=== PATIENT | female | born 1930 | race Caucasian/White ===

== ENCOUNTER → 2018-01-25 | Outpatient (CLI) | payer MEDICARE, MEDICAID ==
[~2018-01-25] MED LIST: ACET-1862 PO; ACET-2031 PO; AMLO-104 PO; AMLO-111 PO; AMOX-559 PO; ASCO-191 PO; ASPI-757 PO; ASPI-870; ASPI81TA94 PO; BENZ100C26 PO; CHOL400T31 PO; CYA1000 PO; HCTZ25 PO; HYDR-2966 PO; IBU200 PO; LACT1CAP64 PO; LIS20 PO; LOVAZA1PT PO; MULT-27 PO; MULT-947 PO; PNEU0.5D3 IM; POTA20PA10 PO; POTA20TA85 PO; PROP40TA45 PO; PROP80TA25 PO; RABE20TA33 PO; SIMV-42 PO; SIMV10TA98 PO; TRAZ150T8 PO; TRAZ50 PO; VIT1CAPS32 PO; WARF6TAB PO; [UNRECOGNIZED DRUG - CODE] MC; [UNRECOGNIZED DRUG - CODE] PO; [UNRECOGNIZED DRUG - CODE] PO
== END ==
LOC: LAB 14:26
PROVIDERS: ATTEND Internal Medicine
DX: M15.9 Polyosteoarthritis, unspecified (principal); I10 Essential (primary) hypertension
CPT/HCPCS: 36415; 82310; 82374; 82435; 82565; 82947; 84132; 84295; 84520

== ENCOUNTER 2018-04-06 11:23 | Emergency (ER) | payer MEDICARE, MEDICAID ==
[~2018-04-06 11:23] MED LIST changes: -DOXY-179 PO
--- NOTE | 2018-04-06 11:31 | ER Report ---
History and Physical Time Seen By MD: 11:25 HPI/ROS CHIEF COMPLAINT: Blisters to the foot HISTORY OF PRESENT ILLNESS: This is an 79-year-old female presents to the emergency department for a hematoma to the plantar surface of her left foot. Patient states that she had a callus that was shaved down March 12. No complications or problems during this period yesterday she began to have some increased pain to her left foot, on the plantar surface. Ambulation last night became increasingly more painful, then this morning the pain was too uncomfortable, she also noted that she had a large hematoma to the bottom of her foot. She had home health, and take a look at the foot they thought that going to the ER to have the "hematoma drained". The patient is not diabetic. She does not take blood thinners other than an 81 mg daily aspirin, she does take Aleve on a regular basis. The area surrounding the right great toe is red, with a hematoma to the ball of the foot at the base of the left great toe. The patient denies fevers or chills. No nausea or vomiting. No other concerns at this time. REVIEW OF SYSTEMS: Respiratory: No cough, no dyspnea. Cardiovascular: No chest pain, no palpitations. Gastrointestinal: No vomiting, no abdominal pain. Musculoskeletal: As above. Integumentary: As above. Allergies: Coded Allergies: Sulfa (Sulfonamide Antibiotics) (Verified Allergy, Intermediate, RASH, 02/10/16) azithromycin (Verified Allergy, Unknown, 04/06/18) diazepam (Verified Adverse Reaction, Severe, MENTAL STATUS CHANGES, 02/10/16) lisinopril (Verified Adverse Reaction, Mild, DRY COUGH, 02/10/16) warfarin (Verified Adverse Reaction, Unknown, DIARRHEA, 04/06/18) Uncoded Allergies: DIPHENISTRAP (Allergy, Unknown, 04/06/18) Home Meds Active Scripts Doxycycline Hyclate (DOXYCYCLINE HYCLATE) 100 Mg Tablet, 100 MG PO BID for 10 Days, #20 TAB 0 Refills Prov:BIENVENIDO [employer]ARK [employer] JOGGER-BC 04/06/18 Hydrochlorothiazide (HYDROCHLOROTHIAZIDE) 25 Mg Tablet, 1 TAB PO QDAY, #90 TAB 1 Refill Prov:YOAN JAFFE MD 11/06/17 Propranolol Hcl (PROPRANOLOL HCL) 40 Mg Tablet, 2 TAB PO QDAY, #180 TAB 3 Refills Prov:YOAN JAFFE MD 11/02/17 Potassium Chloride (KLOR-CON M20) 20 Meq Tab.er.prt, 1 TAB PO QDAY, #90 TAB 4 Refills Prov:YOAN JAFFE MD 06/30/17 Simvastatin (SIMVASTATIN) 10 Mg Tablet, 1 TAB PO HS, #90 TAB 3 Refills Prov:YOAN JAFFE MD 06/27/17 Incontinence Pad,Liner,Disp (POISE PADS) 1 Each Each, EACH MC Q30D, #90 11 Refills Use three pads daily. Prov:YOAN JAFFE MD 05/02/17 Reported Medications Multivit With Calcium,Iron,Min (WOMEN'S DAILY FORMULA) 1 Each Tablet, 1 TAB PO QDAY 10/13/16 Aspirin (ASPIRIN) 81 Mg Tab.chew, 1 TAB PO QDAY, TAB.CHEW 02/10/16 Discontinued Scripts Amlodipine Besylate (AMLODIPINE BESYLATE) 5 Mg Tablet, 1 TAB PO QDAY, #90 TAB 3 Refills Prov:YOAN JAFFE MD 05/02/17 Past Medical/Surgical History The patient has a past medical and surgical history of cataracts, TIAs, stroke, pacemaker, congestive heart failure, pulmonary embolus, hypercholesterolemia, complete heart block, hypertension, pneumonia, upper GI bleed, GERD, irritable bowel syndrome, hiatal hernia, appendectomy, cholecystectomy, endoscopy, breast cancer, hysterectomy, , spinal stenosis, osteoarthritis, chronic back pain, hyperthyroidism, radiation for thyroid, depression, anxiety, shingles, takes Coumadin, biopsy of breast. Hx Smoking: No Smoking Status: Never Smoker Exposure to Second Hand Smoke?: Yes Constitutional Vital Sign - Last 24 Hours 04/06/18 04/06/18 04/06/18 04/06/18 11:23 11:24 11:24 11:30 Temp 98.0 Pulse ??? 66 Resp 16 B/P (MAP) 173/99 173/99 (123) 177/83 (114) Pulse Ox 93 O2 Delivery Room Air 04/06/18 04/06/18 04/06/18 04/06/18 11:38 11:53 12:00 12:08 Pulse 60 60 67 B/P (MAP) 160/84 (109) Pulse Ox 89 88 90 04/06/18 04/06/18 04/06/18 04/06/18 12:23 12:30 12:38 12:53 Pulse 62 61 61 B/P (MAP) 163/80 (107) Pulse Ox 86 88 95 04/06/18 04/06/18 04/06/18 04/06/18 12:58 13:00 13:13 13:43 Pulse 61 62 60 B/P (MAP) 164/82 (109) Pulse Ox 92 89 92 04/06/18 13:58 Pulse 60 Pulse Ox 87 Physical Exam General Appearance: The patient is alert, has no immediate need for airway protection and no current signs of toxicity. Eyes: Pupils equal and round no injection. Respiratory: Chest is non tender, lungs are clear to auscultation. Cardiac: regular rate and rhythm. Gastrointestinal: Abdomen is soft and non tender, no masses, bowel sounds normal. Musculoskeletal: Neck: Neck is supple and non tender. Extremities have full range of motion and are non tender. Skin: Erythema, early onset of cellulitis and hematoma to the plantar surface of the left foot around the base of the great toe. DIFFERENTIAL DIAGNOSIS: After history and physical exam differential diagnosis was considered for cellulitis, hematoma, septic arthritis, osteomyelitis. Medical Decision Making [place]/Imaging [place] [facility] [place] Genie Del Rosario : 1930 Visit/Account:[id number] Date of Sevice: 04/06/2018 EXAMINATION: Left foot radiographs 3 views HISTORY: Evaluate for osteomyelitis. Blood blister on bottom of foot at 1st MTP. COMPARISON: None. FINDINGS: AP, lateral and oblique views of the left foot are obtained. Bones: Bony structures are diffusely osteopenic. There is no bony erosion or periosteal reaction. Joint spaces: Moderate joint space narrowing of the 1st MTP joint. Hardware: None. Alignment: Hallux valgus. Probable hammertoe deformities, although these images are not weightbearing. There is lateral dislocation at the 2nd MTP joint. Soft tissues: Negative. IMPRESSION: 1. No radiographic evidence of osteomyelitis of the left foot. 2. 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 3. 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 Report Dictated By: Dianne Katz MD at 04/06/2018 12:09 PM Report E-Signed By: Dianne Katz MD at 04/06/2018 12:13 PM WSN:[id number] ED Course/Re-evaluation ED Course The patient was admitted to room. A history of physical were obtained. Differential diagnoses were considered. 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 I did review the x-ray results with the patient. I did tell her not feel that aspirating the fluid out of the hematoma is appropriate at this time, I be concerned about introducing more bacteria into the already mildly erythematous and mildly cellulitic foot. Patient expressed understanding. We did make contact with the patient's home health staff, I did write an order for home health visits daily for the next week to reevaluate the foot, we did place a loosely wrapped Mikey wrap around the foot right some discomfort and redistribute some of the hematoma. The patient was started on doxycycline. Patient was discharged home. Her questions or concerns at this time, patient was in agreement with his care. She was also encouraged to return to the ER for any other concerns or if the symptoms become increasingly more problematic. 04/06/2018 12:40:00 pm social worker psychiatric will come and speak with the patient, I would like for home health to monitor her left foot for the next week to confirm that the infection is improving and that the hematoma is improving as well. Decision to Disposition Date: Apr 06, 2018 Decision to Disposition Time: 13:11 Depart Departure Latest Vital Signs Vital Signs Date Time Temp Pulse Resp B/P (MAP) Pulse Ox O2 Delivery O2 Flow Rate FiO2 04/06/18 13:58 60 87 04/06/18 13:00 164/82 (109) 04/06/18 11:24 98.0 16 Room Air Impression: Primary Impression: Cellulitis of left foot Additional Impression: Hematoma Condition: Improved Disposition: HOME OR SELF-CARE Referrals: YOAN JAFFE MD (PCP) New Scripts Doxycycline Hyclate (DOXYCYCLINE HYCLATE) 100 Mg Tablet 100 MG PO BID for 10 Days, #20 TAB 0 Refills Prov: [employer] JOGGER-BC 04/06/18 Patient Instructions: Cellulitis (ED), Hematoma (ED) Additional Instructions: Please have home health evaluate the foot daily and rewrap the foot with the mikey wrap, but not too tight. Take the Doxycycline as directed. If the home health staff are concerned about worsening infection, return to the ED or follow up with Dr. Helm. Get plenty of rest. Drink plenty of water. Return to the ED for any other concerns or worsening symptoms. Problem Qualifiers [employer] JOGGER-BC Apr 06, 2018 11:31
--- NOTE | 2018-04-06 12:19 | RADIOLOGY IMAGING REPORT ---
FACILITY: [facility] - [place] PATIENT NAME: Genie Del Rosario : 1930 MR: [id number] V: [id number] EXAM DATE: ORDERING PHYSICIAN: BIENVENIDO PARK TECHNOLOGIST: [place] [facility] [place] Genie Del Rosario : 1930 Visit/Account:[id number] Date of Sevice: 04/06/2018 EXAMINATION: Left foot radiographs 3 views HISTORY: Evaluate for osteomyelitis. Blood blister on bottom of foot at 1st MTP. COMPARISON: None. FINDINGS: AP, lateral and oblique views of the left foot are obtained. Bones: Bony structures are diffusely osteopenic. There is no bony erosion or periosteal reaction. Joint spaces: Moderate joint space narrowing of the 1st MTP joint. Hardware: None. Alignment: Hallux valgus. Probable hammertoe deformities, although these images are not weightbearin g. There is lateral dislocation at the 2nd MTP joint. Soft tissues: Negative. IMPRESSION: 1. No radiographic evidence of osteomyelitis of the left foot. 2. 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 3. 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 Report Dictated By: Dianne Katz MD at 04/06/2018 12:09 PM Report E-Signed By: Dianne Katz MD at 04/06/2018 12:13 PM WSN:[id number]
[2018-04-06 13:00] VITALS: BP 164/82
[2018-04-06] MEDS ORDERED: DOXY-179 PO (13:00)
== END 2018-04-06 14:05 | disposition home or self-care (01) ==
LOC: ER 11:44
DX: L03.116 Cellulitis of left lower limb (principal); S90.32XA Contusion of left foot, initial encounter
CPT/HCPCS: 99283

== ENCOUNTER → 2018-04-06 | Outpatient (CLI) | payer MEDICARE, MEDICAID ==
[~2018-04-06] MED LIST changes: -AMLO-111 PO; +AMLO-125 PO; +DOXY-179 PO
== END ==
LOC: AMB 11:00
PROVIDERS: ATTEND Nurse Practitioner
DX: S90.32XA Contusion of left foot, initial encounter (principal)
CPT/HCPCS: A0425; A0429

== ENCOUNTER → 2018-04-06 | Outpatient (CLI) | payer MEDICARE, MEDICAID | LOC: AMB 13:56 | PROVIDERS: ATTEND Nurse Practitioner | DX: M79.671 Pain in right foot (principal) | CPT/HCPCS: A0425; A0428 ==

== ENCOUNTER → 2018-04-25 | Outpatient (CLI) | payer MEDICARE, MEDICAID ==
[~2018-04-25] MED LIST changes: +DOXY-179 PO
[2018-04-25 11:38] LABS: LDL CHOLESTEROL 58 mg/dl
== END ==
LOC: LAB 11:07
PROVIDERS: ATTEND Internal Medicine
DX: E05.90 Thyrotoxicosis, unspecified without thyrotoxic crisis or storm (principal); E78.2 Mixed hyperlipidemia; I10 Essential (primary) hypertension
CPT/HCPCS: 36415; 82040; 82247; 82310; 82374; 82435; 82465; 82565; 82947; 83718; 84075; 84132; 84155; 84295; 84443; 84450; 84460; 84478; 84520

== ENCOUNTER 2018-08-02 09:30 | Emergency (ER) | payer MEDICARE, MEDICAID ==
[~2018-08-02 09:30] MED LIST changes: -LIDO700A19 TD
--- NOTE | 2018-08-02 09:36 | ER Report ---
History and Physical Time Seen By MD: 09:36 HPI/ROS CHIEF COMPLAINT: Fall on Monday HISTORY OF PRESENT ILLNESS: Patient is a 87-year-old female here with complaints of right lower rib pain status post fall onto a stool several days ago with ac utely worsening pain today. Patient reports having difficulty taking deep breaths due to right-sided chest pains. Patient is afebrile, hemodynamically stable at time of evaluation. Patient does live alone and reports that she is concerned that she may have fractured her ribs. Patient is hemodynamically stable at time of evaluation. Patient also complains of right knee pain. REVIEW OF SYSTEMS: Constitutional: No fever, no chills. Eyes: No discharge. ENT: No sore throat. Cardiovascular: + right sided lower chest pain, no palpitations. Respiratory: No cough, + shortness of breath. Gastrointestinal: No abdominal pain, no vomiting. Genitourinary: No hematuria. Musculoskeletal: No back pain. Skin: No rashes. Neurological: No headache. Allergies: Coded Allergies: Sulfa (Sulfonamide Antibiotics) (Verified Allergy, Intermediate, RASH, 08/02/18) azithromycin (Verified Allergy, Unknown, 08/02/18) diazepam (Verified Adverse Reaction, Severe, MENTAL STATUS CHANGES, 08/02/18) lisinopril (Verified Adverse Reaction, Mild, DRY COUGH, 08/02/18) warfarin (Verified Adverse Reaction, Unknown, DIARRHEA, 08/02/18) Uncoded Allergies: DIPHENISTRAP (Allergy, Unknown, 04/06/18) Home Meds Active Scripts Lidocaine (Lidocaine) 5 % Adh..patch, 1 PATCH TD Q12H PRN for PAIN, #20 PATCH Prov:CONCHITA LEOS DO 08/02/18 Propranolol Hcl (PROPRANOLOL HCL) 40 Mg Tablet, 2 TAB PO QDAY, #180 TAB 1 Refill Prov:YOAN JAFFE MD 05/16/18 Hydrochlorothiazide (HYDROCHLOROTHIAZIDE) 25 Mg Tablet, 1 TAB PO QDAY, #90 TAB 1 Refill Prov:YOAN JAFFE MD 11/06/17 Potassium Chloride (KLOR-CON M20) 20 Meq Tab.er.prt, 1 TAB PO QDAY, #90 TAB 4 Refills Prov:YOAN JAFFE MD 06/30/17 Simvastatin (SIMVASTATIN) 10 Mg Tablet, 1 TAB PO HS, #90 TAB 3 Refills Prov:YOAN JAFFE MD 06/27/17 Incontinence Pad,Liner,Disp (POISE PADS) 1 Each Each, EACH MC Q30D, #90 11 Refills Use three pads daily. Prov:YOAN JAFFE MD 05/02/17 Reported Medications Multivit With Calcium,Iron,Min (WOMEN'S DAILY FORMULA) 1 Each Tablet, 1 TAB PO QDAY 10/13/16 Aspirin (ASPIRIN) 81 Mg Tab.chew, 1 TAB PO QDAY, TAB.CHEW 02/10/16 Hx Smoking: No Smoking Status: Never Smoker Exposure to Second Hand Smoke?: Yes Constitutional Vital Sign - Last 24 Hours 08/02/18 08/02/18 08/02/18 08/02/18 09:30 09:32 09:33 09:37 Temp 98.2 Pulse ??? 60 Resp 18 B/P (MAP) 142/130 (134) 166/90 166/90 (115) Pulse Ox 88 O2 Delivery Room Air 08/02/18 08/02/18 08/02/18 08/02/18 10:00 10:30 11:00 11:30 Pulse 64 69 62 67 Resp 21 17 19 17 B/P (MAP) 169/86 (113) 158/82 (107) 170/87 (114) 160/86 (110) Pulse Ox 93 93 08/02/18 12:00 Pulse 62 Resp 20 B/P (MAP) 149/86 (107) Physical Exam General Appearance: The patient is alert, has no immediate need for airway protection and no signs of toxicity. Uncomfortable appearing Eyes: Pupils equal and round no pallor or injection. ENT, Mouth: Mucous membranes are moist. Respiratory: There are no retractions, lungs are clear to auscultation. Cardiovascular: Regular rate and rhythm. + tenderness on palpation of right chest wall lower ribs Gastrointestinal: Abdomen is soft and non tender, no masses, bowel sounds normal. Neurological: No focal neurological deficits Skin: Warm and dry, no rashes. Musculoskeletal: Neck is supple non tender. Extremities are nontender, nonswollen and have full range of motion. DIFFERENTIAL DIAGNOSIS: After history and physical exam differential diagnosis was considered for chest pain including but not limited to myocardial ischemia, pericarditis pulmonary embolus, chest wall pain, pleural inflammation and pulmonary infectious causes. Medical Decision Making Data Points Result Diagram: 08/02/18 0946 08/02/18 0946 Laboratory Hematology Test 08/02/18 09:46 Red Blood Count 5.03 M/uL (4.17-5.56) Mean Corpuscular Volume 94.2 fL (80.0-96.0) Mean Corpuscular Hemoglobin 32.5 pg (26.0-33.0) Mean Corpuscular Hemoglobin Concent 34.5 g/dL (32.0-36.0) Red Cell Distribution Width 14.2 % (11.5-14.5) Mean Platelet Volume 9.3 fL (7.2-11.1) Neutrophils (%) (Auto) 63.7 % (39.4-72.5) Lymphocytes (%) (Auto) 22.2 % (17.6-49.6) Monocytes (%) (Auto) 8.4 % (4.1-12.4) Eosinophils (%) (Auto) 4.7 % (0.4-6.7) Basophils (%) (Auto) 1.0 % (0.3-1.4) Nucleated RBC Relative Count (auto) 0.1 /100WBC Neutrophils # (Auto) 5.2 K/uL (2.0-7.4) Lymphocytes # (Auto) 1.8 K/uL (1.3-3.6) Monocytes # (Auto) 0.7 K/uL (0.3-1.0) Eosinophils # (Auto) 0.4 K/uL (0.0-0.5) Basophils # (Auto) 0.1 K/uL (0.0-0.1) Nucleated RBC Absolute Count (auto) 0.01 K/uL Prothrombin Time 13.9 seconds (12.0-14.4) Prothromb Time International Ratio 1.07 Activated Partial Thromboplast Time 29 seconds (23-35) Sodium Level 140 mmol/L (137-145) Potassium Level 3.7 mmol/L (3.5-5.0) Chloride Level 104 mmol/L (98-107) Carbon Dioxide Level 30 mmol/L (22-31) Blood Urea Nitrogen 15 mg/dl (7-18) Creatinine 0.60 mg/dl (0.52-1.04) Glomerular Filtration Rate Calc > 60.0 Random Glucose 101 mg/dl (75-110) Calcium Level 10.4 mg/dl (8.4-10.2) Total Bilirubin 1.2 mg/dl (0.2-1.3) Aspartate Amino Transf (AST/SGOT) 23 U/L (0-35) Alanine Aminotransferase (ALT/SGPT) 19 U/L (0-56) Alkaline Phosphatase 57 U/L (0-126) Total Protein 6.8 g/dl (6.3-8.2) Albumin 3.8 g/dl (3.5-5.0) Lipase 71 U/L (23-300) Chemistry Test 08/02/18 09:46 White Blood Count 8.2 k/uL (4.5-11.0) Red Blood Count 5.03 M/uL (4.17-5.56) Hemoglobin 16.3 g/dL (12.0-16.0) Hematocrit 47.3 % (34.0-47.0) Mean Corpuscular Volume 94.2 fL (80.0-96.0) Mean Corpuscular Hemoglobin 32.5 pg (26.0-33.0) Mean Corpuscular Hemoglobin Concent 34.5 g/dL (32.0-36.0) Red Cell Distribution Width 14.2 % (11.5-14.5) Platelet Count 151 K/uL (150-450) Mean Platelet Volume 9.3 fL (7.2-11.1) Neutrophils (%) (Auto) 63.7 % (39.4-72.5) Lymphocytes (%) (Auto) 22.2 % (17.6-49.6) Monocytes (%) (Auto) 8.4 % (4.1-12.4) Eosinophils (%) (Auto) 4.7 % (0.4-6.7) Basophils (%) (Auto) 1.0 % (0.3-1.4) Nucleated RBC Relative Count (auto) 0.1 /100WBC Neutrophils # (Auto) 5.2 K/uL (2.0-7.4) Lymphocytes # (Auto) 1.8 K/uL (1.3-3.6) Monocytes # (Auto) 0.7 K/uL (0.3-1.0) Eosinophils # (Auto) 0.4 K/uL (0.0-0.5) Basophils # (Auto) 0.1 K/uL (0.0-0.1) Nucleated RBC Absolute Count (auto) 0.01 K/uL Prothrombin Time 13.9 seconds (12.0-14.4) Prothromb Time International Ratio 1.07 Activated Partial Thromboplast Time 29 seconds (23-35) Glomerular Filtration Rate Calc > 60.0 Calcium Level 10.4 mg/dl (8.4-10.2) Total Bilirubin 1.2 mg/dl (0.2-1.3) Aspartate Amino Transf (AST/SGOT) 23 U/L (0-35) Alanine Aminotransferase (ALT/SGPT) 19 U/L (0-56) Alkaline Phosphatase 57 U/L (0-126) Total Protein 6.8 g/dl (6.3-8.2) Albumin 3.8 g/dl (3.5-5.0) Lipase 71 U/L (23-300) Coagulation Test 08/02/18 09:46 Prothrombin Time 13.9 seconds Prothromb Time International Ratio 1.07 Activated Partial Thromboplast Time 29 seconds EKG/Imaging Imaging PATIENT NAME: Genie Del Rosario : 1930 MR: [id number] V: [id number] EXAM DATE: ORDERING PHYSICIAN: CONCHITA LEOS TECHNOLOGIST: Location: [facility] Patient: Genie Del Rosario : 1930 Visit/Account:[id number] Date of Sevice: 08/02/2018 CT CHEST ABDOMEN PELVIS W/CON HISTORY: fall, right lower rib pain s/p fall tues TECHNIQUE: CT thoracic inlet to the pubic symphysis was obtained with IV c ontrast. One of the following dose optimization techniques was utilized in the performance of this exam: automated exposure control; adjustment of the mA and/or kV according to the patient's size; or use of an iterative reconstruction technique. Specific details can be referenced in the facility's radiology CT exam operational policy. CONTRAST: 75 cc Isovue-370 IV. COMPARISON: None. FINDINGS: CHEST: Lungs/pleura: The lungs are clear. Mediastinum: There is mild cardiomegaly. Internal cardiac defibrillator/pacemaker wires are seen in good position. There is no mediastinal adenopathy. Bones/soft tissues: There are no rib fractures. Right and left clavicle are intact. Both scapulas are intact. ABDOMEN/PELVIS: Liver/gallbladder: Liver demonstrates normal enhancement. The gallbladder is not identified. Spleen: Normal. Adrenals: Normal. Pancreas: Normal enhancement without evidence of mass. Kidneys/: There are several cysts in the left kidney. There is no suspicious right or left renal mass. Pelvis/Bladder: Urinary bladder is normal. GI: There is no focal abnormality in the small bowel or colon. Vessels/nodes: Negative. Bones/soft tissues: There are no lytic or blastic bone lesions. Multilevel degenerative disc disease change and facet arthropathy is seen throughout the lumbar spine. There is no evidence of pelvic fracture. IMPRESSION: 1. Clear lungs. 2. No evidence of solid organ injury in the abdomen or pelvis. 3. No evidence of fracture. PATIENT NAME: Genie Del Rosario : 1930 MR: [id number] V: [id number] EXAM DATE: ORDERING PHYSICIAN: CONCHITA LEOS TECHNOLOGIST: Location: [facility] Patient: Genie Del Rosario : 1930 Visit/Account:[id number] Date of Sevice: 08/02/2018 Study: KNEE 3 VIEW RIGHT Indication: Fall Comparison study: None available Findings: AP lateral and oblique views of the right knee demonstrates mild degenerative disease. There is chondrocalcinosis of the menisci present. There is no significant suprapatellar effusion noted. There is no evidence of lytic or blastic bony lesions. There is no evidence of acute bony abnormality. IMPRESSION: Mild degenerative disease. Chondrocalcinosis of the menisci. There is no evidence of acute bony abnormality. ED Course/Re-evaluation ED Course Patient is an 87-year-old female here status post fall several days ago with complaints of right chest wall pain. Patient reportedly struck her right lower rib cage on a stool at that time and complains now of difficulty taking a deep breath. Labs were unremarkable with a stable H&H. CT chest and pelvis showed no acute intrathoracic or intra-abdominal findings. Lidocaine patch was administered to the point of maximum tenderness. Patient was given a prescription for lidocaine patches. Recommend close PCP follow-up in the next 24-48 hours. Knee x-ray was negative for fracture. Return precautions provided. Patient was hemodynamically stable throughout course. Decision to Disposition Date: August 02, 2018 Decision to Disposition Time: 12:35 Depart Departure Latest Vital Signs Vital Signs Date Time Temp Pulse Resp B/P (MAP) Pulse Ox O2 Delivery O2 Flow Rate FiO2 08/02/18 12:00 62 20 149/86 (107) 08/02/18 10:30 93 08/02/18 09:33 98.2 Room Air Impression: Primary Impression: Contusion of rib on right side Condition: Improved Disposition: HOME OR SELF-CARE Referrals: YOAN JAFFE MD (PCP) New Scripts Lidocaine (Lidocaine) 5 % Adh..patch 1 PATCH TD Q12H PRN for PAIN, #20 PATCH Prov: CONCHITA LEOS DO 08/02/18 Patient Instructions: Contusion in Adults (ED) Additional Instructions: Please drink plenty of water. You may apply 1 patch to the painful right chest area every 12 hours as needed for pain control. Please follow-up in the next 24- 48 hours with your primary care provider. Please return promptly if she develop worsening pain, fevers, cough, nausea, vomiting. CONCHITA LEOS DO August 02, 2018 09:36
[2018-08-02 09:55] LABS: PLATELET COUNT, AUTOMATED 151 K/uL (150-450)
[2018-08-02 10:18] LABS: INR 1.07
[2018-08-02] MEDS ORDERED: IOPAMIDOL 76% 150 ML INFUS BTL 150 ML ONE (10:39)
--- NOTE | 2018-08-02 10:51 | RADIOLOGY IMAGING REPORT ---
FACILITY: [facility] - [place] PATIENT NAME: Genie Del Rosario : 1930 MR: [id number] V: [id number] EXAM DATE: ORDERING PHYSICIAN: CONCHITA LEOS TECHNOLOGIST: [place] [facility] [facility] [place] Genie Del Rosario : 1930 Visit/Account:[id number] Date of Sevice: 08/02/2018 Study: KNEE 3 VIEW RIGHT Indication: Fall Comparison study: None available Findings: AP lateral and oblique views of the right knee demonstrates mild degenerative disease. Ther e is chondrocalcinosis of the menisci present. There is no significant suprapatellar effusion noted. There is no evidence of lytic or blastic bony l esions. There is no evidence of acute bony abnormality. IMPRESSION: Mild degenerative disease. Chondrocalcinosis of the menisci. There is no evidence of acut e bony abnormality. Report Dictated By: Clinton Unger at 08/02/2018 10:44 AM Report E-Signed By: Clinton Unger at 08/02/2018 10:46 AM WSN:[id number]
--- NOTE | 2018-08-02 11:21 | RADIOLOGY IMAGING REPORT ---
FACILITY: [facility] PATIENT NAME: Genie Del Rosario : 1930 MR: [id number] V: [id number] EXAM DATE: ORDERING PHYSICIAN: CONCHITA LEOS TECHNOLOGIST: Location: [facility] - [place] Patient: Genie Del Rosario : 1930 Visit/Account:[id number] Date of Sevice: 08/02/2018 CT CHEST ABDOMEN PELVIS W/CON HISTORY: fall, right lower rib pain s/p fall tues TECHNIQUE: CT thoracic inlet to the pubic symphysis was obtained with IV contrast. One of the following dose optimization techniques was utilized in the performance of this exam: autom ated exposure control; adjustment of the mA and/or kV according to the patient's size; or use of an i terative reconstruction technique. Specific details can be referenced in the facility's radiology CT exam operational policy. CONTRAST: 75 cc Isovue-370 IV. COMPARISON: None. FINDINGS: CHEST: Lungs/pleura: The lungs are clear. Mediastinum: There is mild cardiomegaly. Internal cardiac defibrillator/pacemaker wires are seen in good position. There is no mediastinal adenopathy. Bones/soft tissues: There are no rib fractures. Right and left clavicle are intact. Both scapulas ar e intact. ABDOMEN/PELVIS: Liver/gallbladder: Liver demonstrates normal enhancement. The gallbladder is not identified. Spleen: Normal. Adrenals: Normal. Pancreas: Normal enhancement without evidence of mass. Kidneys/: There are several cysts in the left kidney. There is no suspicious right or left renal m ass. Pelvis/Bladder: Urinary bladder is normal. GI: There is no focal abnormality in the small bowel or colon. Vessels/nodes: Negative. Bones/soft tissues: There are no lytic or blastic bone lesions. Multilevel degenerative disc disease change and facet arthropathy is seen throughout the lumbar spine. There is no evidence of pelvic fra cture. IMPRESSION: 1. Clear lungs. 2. No evidence of solid organ injury in the abdomen or pelvis. 3. No evidence of fracture. Report Dictated By: Leif Lee at 08/02/2018 11:09 AM Report E-Signed By: Leif Lee at 08/02/2018 11:16 AM WSN:[id number]
[2018-08-02] MEDS ORDERED: LIDOCAINE 5% PATCH TP SCH (11:55)
[2018-08-02 12:00] VITALS: BP 149/86
[2018-08-02] MEDS ORDERED: LIDO700A19 TD (12:37)
== END 2018-08-02 13:45 | disposition home or self-care (01) ==
LOC: ER 09:30
DX: S30.1XXA Contusion of abdominal wall, initial encounter (principal)
CPT/HCPCS: 71260; 73562; 74177; 83690; 85025; 85610; 85730; 99284; A9270; Q9967; 82040; 82247; 82310; 82374; 82435; 82565; 82947; 84075; 84132; 84155; 84295; 84450; 84460; 84520

== ENCOUNTER → 2018-08-02 | Outpatient (CLI) | payer MEDICARE, MEDICAID ==
[~2018-08-02] MED LIST changes: +LIDO700A19 TD
== END ==
LOC: AMB 09:07
PROVIDERS: ATTEND Nurse Practitioner
DX: R07.81 Pleurodynia (principal); R10.11 Right upper quadrant pain; W19.XXXA Unspecified fall, initial encounter
CPT/HCPCS: A0425; A0429

== ENCOUNTER → 2018-08-02 | Outpatient (CLI) | payer MEDICARE, MEDICAID | LOC: AMB 13:39 | PROVIDERS: ATTEND Nurse Practitioner | DX: Z76.89 Persons encountering health services in other specified circumstances (principal) | CPT/HCPCS: A0425; A0428 ==

== ENCOUNTER 2018-09-27 13:15 | Emergency (ER) | payer MEDICARE, MEDICAID ==
[~2018-09-27 13:15] MED LIST changes: -LIDO76.5
--- NOTE | 2018-09-27 13:27 | ER Report ---
History and Physical Time Seen By MD: 13:25 Hx. of Stated Complaint: Pt. hasn't had a BM for 5 days. Recent fall on 09/22 and also has right rib pain. Refused transport to hospital after fall on 09/22. For consiptation, pt. has been taking Milk of Mag with liquid stool, but feels like she has big stool that won't pass. HPI/ROS CHIEF COMPLAINT: Constipation HISTORY OF PRESENT ILLNESS: This is an 87-year-old female who presents to emergency department for constipation. Patient states that it's been 5 days since she's had a bowel movement, she states that she can feel stool in her rectum she is unable to reach around and disimpact herself she states she had a recent fall and anytime she turns or bears down increase the pain to her ribs. She denies significant abdominal pain, she states that she is somewhat d istended, she also states that she is having difficulties urinating now. She denies fevers or chills. No chest pain or shortness of breath. No nausea or vomiting. REVIEW OF SYSTEMS: Constitutional: No fever, no chills. Eyes: No discharge. ENT: No sore throat. Cardiovascular: No chest pain, no palpitations. Respiratory: No cough, no shortness of breath. Gastrointestinal: As above. Genitourinary: As above. Musculoskeletal: No back pain. Skin: No rashes. Neurological: No headache. Allergies: Coded Allergies: Sulfa (Sulfonamide Antibiotics) (Verified Allergy, Intermediate, RASH, 09/27/18) azithromycin (Verified Allergy, Unknown, 09/27/18) diazepam (Verified Adverse Reaction, Severe, MENTAL STATUS CHANGES, 09/27/18) lisinopril (Verified Adverse Reaction, Mild, DRY COUGH, 09/27/18) warfarin (Verified Adverse Reaction, Unknown, DIARRHEA, 09/27/18) Uncoded Allergies: DIPHENISTRAP (Allergy, Unknown, 04/06/18) Home Meds Active Scripts Lidocaine (Lidocaine) 5 % Adh..patch, 1 PATCH TD Q12H PRN for PAIN, #20 PATCH Prov:CONCHITA LEOS DO 08/02/18 Propranolol Hcl (PROPRANOLOL HCL) 40 Mg Tablet, 2 TAB PO QDAY, #180 TAB 1 Refill Prov:YOAN JAFFE MD 05/16/18 Hydrochlorothiazide (HYDROCHLOROTHIAZIDE) 25 Mg Tablet, 1 TAB PO QDAY, #90 TAB 1 Refill Prov:YOAN JAFFE MD 11/06/17 Potassium Chloride (KLOR-CON M20) 20 Meq Tab.er.prt, 1 TAB PO QDAY, #90 TAB 4 Refills Prov:YOAN JAFFE MD 06/30/17 Simvastatin (SIMVASTATIN) 10 Mg Tablet, 1 TAB PO HS, #90 TAB 3 Refills Prov:YOAN JAFFE MD 06/27/17 Incontinence Pad,Liner,Disp (POISE PADS) 1 Each Each, EACH MC Q30D, #90 11 Refills Use three pads daily. Prov:YOAN JAFFE MD 05/02/17 Reported Medications Amlodipine Besylate (AMLODIPINE BESYLATE) 5 Mg Tablet, 1 TAB PO QDAY, TAB 08/16/18 Multivit With Calcium,Iron,Min (WOMEN'S DAILY FORMULA) 1 Each Tablet, 1 TAB PO QDAY 10/13/16 Aspirin (ASPIRIN) 81 Mg Tab.chew, 1 TAB PO QDAY, TAB.CHEW 02/10/16 Past Medical/Surgical History The patient has a past medical and surgical history of Parkinson's disease, TIA, pacemaker, complete heart block, hypertension, hypercholesterolemia, pneumonia, pulmonary embolus, upper GI bleed, hiatal hernia, spinal stenosis, macular degeneration, congestive heart failure, benign cyst removal from bilateral breasts, cholecystectomy, hysterectomy, cataract surgery. Reviewed Nurses Notes: Yes Hx Smoking: No Smoking Status: Never Smoker Exposure to Second Hand Smoke?: Yes Constitutional Vital Sign - Last 24 Hours 09/27/18 09/27/18 09/27/18 09/27/18 13:15 13:17 13:30 13:45 Temp 98.3 Pulse 71 66 B/P (MAP) 149/74 149/74 (99) 114/94 (101) Pulse Ox 84 94 O2 Delivery Room Air 09/27/18 14:30 B/P (MAP) 112/64 (80) Physical Exam General Appearance: The patient is alert, has no immediate need for airway protection and no signs of toxicity. Eyes: Pupils equal and round no pallor or injection. ENT, Mouth: Mucous membranes are moist. Respiratory: There are no retractions, lungs are clear to auscultation. Cardiovascular: Regular rate and rhythm. No murmurs, clicks or rubs. Gastrointestinal: Abdomen is round, soft and non tender, no masses, bowel sounds normal. Neurological: Alert and oriented 4. Moving. Falling. No focal neurodeficits. Skin: Warm and dry, no rashes. Musculoskeletal: Neck is supple non tender. Extremities are nontender, nonswollen and have full range of motion. DIFFERENTIAL DIAGNOSIS: After history and physical exam differential diagnosis was considered for abdominal pain including but not limited to appendicitis, cholecystitis, constipation, bowel obstruction, gastritis and urinary tract infection. Medical Decision Making EKG/Imaging Imaging PATIENT NAME: Genie Del Rosario : 1930 MR: [id number] V: [id number] EXAM DATE: ORDERING PHYSICIAN: BIENVENIDO PARK TECHNOLOGIST: [place] [facility] [place]: Genie Del Rosario : 1930 Visit/Account:[id number] Date of Sevice: 09/27/2018 2 VIEWS CHEST INDICATION: Right-sided pain after fall. COMPARISON: 04/07/2015. FINDINGS: Cardiac silhouette is again mildly enlarged. Mediastinal silhouette and pulmonary vessels within normal limits. Left subclavian 2-lead pacemaker is in place. There is no focal infiltrate or lobar consolidation. There is mild blunting of the right costophrenic angle. Left costophrenic angles well visualized. No pneumothorax or discrete nodule. Upper abdomen is unremarkable. Nondisplaced fracture of the lateral sixth and seventh right ribs. No other discrete rib fractures or acute bony abnormality. Leftward convexity to the spine. IMPRESSION: 1. Nondisplaced fracture of the lateral right sixth and seventh ribs. Mild blunting the right costophrenic angle which could be due to small effusion. No pneumothorax or consolidation. RIBS RIGHT INDICATION: Right-sided pain after fall. COMPARISON: None available FINDINGS: 2 views right third. There is a nondisplaced fracture the right lateral sixth and seventh ribs. No other discrete fractures. No bony lesions. Mild degenerative change seen in the shoulders. IMPRESSION: Nondisplaced fracture of the right lateral sixth and seventh ribs. Report Dictated By: Cain Reza at 09/27/2018 4:20 PM Report E-Signed By: Cain Reza at 09/27/2018 4:25 PM WSN:[id number] PATIENT NAME: Genie Del Rosario : 1930 MR: [id number] V: [id number] EXAM DATE: ORDERING PHYSICIAN: BIENVENIDO PARK TECHNOLOGIST: [place] [facility] [place] Patient: Genie Del Rosario : 1930 Visit/Account:[id number] Date of Sevice: 09/27/2018 ACUTE ABDOMEN SERIES 3 VIEW COMPARISONS: None. ADDITIONAL PERTINENT HISTORY: No bowel movement for 5 days. FINDINGS: Chest: Dual lead left-sided cardiac pacemaker. Atherosclerotic disease of the thoracic arch. Lung gaxiola are clear. Supine evidence of free air: None. Bowel gas pattern: Negative. Surrounding soft tissues and solid organs: Atherosclerotic disease of the abdominal aorta. Osseous structures: Osteoarthritic changes involving both hips. Mild scoliotic curvature convex to the left centered at T12-L1 IMPRESSION: 1. No acute cardiopulmonary disease. 2. No acute intra-abdominal process. Specifically no evidence of significant constipation. Report Dictated By: Vladimir Johnson MD at 09/27/2018 2:21 PM Report E-Signed By: Vladimir Johnson MD at 09/27/2018 2:23 PM WSN:[id number] ED Course/Re-evaluation ED Course The patient was admitted to room. A history and physical obtained. Differential diagnoses were considered. A 3 view x-ray of the abdomen was obtained, showing no obstruction or impaction, normal bowel gas pattern. The patient continued to complain of stool in her rectum, I did attempt to digitally disimpact the stool, I could feel the stool unable to retrieve it, she was assisted to the bedside commode where she did have some resolution of the stool. She is also complaining of rib pain now, rib x-rays obtained, showing posteriorly, nondisplaced fractures of ribs 6 and 7, I did review the results with the patient. Patient does have lidocaine patches at home for her discomfort. I also recommended decr easing the Aleve and incorporating Tylenol into her pain regimen, patient was agreeable, she was given 650 mg by mouth Tylenol while in the ER. Patient was discharged home, she states she is feeling better at the time of discharge. She had no other questions or concerns also encouraged patient follow up with her primary care provider next week for reevaluation. 09/27/2018 3:00:08 pm did attempt to digitally disimpact the patient, I was able to fill the stool the rectal vault however I was unable to retrieve the stool, patient did have a small amount of diarrhea while I was attempting this to, she is now on the bedside commode attempting to stool. She did have a successful bowel movement while on the bedside commode. Decision to Disposition Date: Sep 27, 2018 Decision to Disposition Time: 16:43 Depart Departure Latest Vital Signs Vital Signs Date Time Temp Pulse Resp B/P (MAP) Pulse Ox O2 Delivery O2 Flow Rate FiO2 09/27/18 14:30 112/64 (80) 09/27/18 13:45 66 94 09/27/18 13:15 98.3 Room Air Impression: Primary Impression: Rib fractures Additional Impression: Constipation Condition: Improved Disposition: HOME OR SELF-CARE Referrals: KSENIA CESPEDES MD (PCP) 5 Days ARSALAN ENG DNP, MACHINE CLOTH EXAMINER-BC 5 Days Patient Instructions: Constipation (ED), Rib Fracture (ED) Additional Instructions: You have 2 broken ribs on the right side. You were not completely constipated, only had a small amount of stool in the rectum, we were able to assist you with the removal. You can take 1 Aleve twice a day for pain. You can take 650 mg of Tylenol every 8 hours. Drink plenty of water. Get plenty of rest. I would recommend a soft diet or protein shakes for the next couple of days. Avoid cheese products. Return to the ER for any other concerns or worsening symptoms. Follow-up with your primary care provider early next week or one of the partners for reevaluation of your ribs and constipation. Problem Qualifiers Primary Impression: Rib fractures Encounter type: initial encounter Rib fracture type: multiple ribs Fracture type: closed Laterality: right Qualified Codes: S22.41XA - Multiple fractures of ribs, right side, initial encounter for closed fracture Additional Impression: Constipation Constipation type: slow transit constipation Qualified Codes: K59.01 - Slow transit constipation BIENVENIDO PARK MACHINE CLOTH EXAMINER-BC Sep 27, 2018 13:27
--- NOTE | 2018-09-27 14:29 | RADIOLOGY IMAGING REPORT ---
FACILITY: [facility] - [place] PATIENT NAME: Genie Del Rosario : 1930 MR: [id number] V: [id number] EXAM DATE: ORDERING PHYSICIAN: BIENVENIDO PARK TECHNOLOGIST: Location: [facility] Patient: Genie Del Rosario : 1930 Visit/Account:[id number] Date of Sevice: 09/27/2018 ACUTE ABDOMEN SERIES 3 VIEW COMPARISONS: None. ADDITIONAL PERTINENT HISTORY: No bowel movement for 5 days. FINDINGS: Chest: Dual lead left-sided cardiac pacemaker. Atherosclerotic disease of the thoracic arch. Lung fie lds are clear. Supine evidence of free air: None. Bowel gas pattern: Negative. Surrounding soft tissues and solid organs: Atherosclerotic disease of the abdominal aorta. Osseous structures: Osteoarthritic changes involving both hips. Mild scoliotic curvature convex to th e left centered at T12-L1 IMPRESSION: 1. No acute cardiopulmonary disease. 2. No acute intra-abdominal process. Specifically no evidence of significant constipation. Report Dictated By: Vladimir Johnson MD at 09/27/2018 2:21 PM Report E-Signed By: Vladimir Johnson MD at 09/27/2018 2:23 PM WSN:[id number]
[2018-09-27 14:30] VITALS: BP 112/64
--- NOTE | 2018-09-27 16:32 | RADIOLOGY IMAGING REPORT ---
FACILITY: [facility] - [place] PATIENT NAME: Genie Del Rosario : 1930 MR: [id number] V: [id number] EXAM DATE: ORDERING PHYSICIAN: BIENVENIDO PARK TECHNOLOGIST: Location: [facility] - [place] Patient: Genie Del Rosario : 1930 Visit/Account:[id number] Date of Sevice: 09/27/2018 2 VIEWS CHEST INDICATION: Right-sided pain after fall. COMPARISON: 04/07/2015. FINDINGS: Cardiac silhouette is again mildly enlarged. Mediastinal silhouette and pulmonary vessels within norm al limits. Left subclavian 2-lead pacemaker is in place. There is no focal infiltrate or lobar consolidation. There is mild blunting of the right costophrenic angle. Left costophrenic angles well visualized. No pneumothorax or discrete nodule. Upper abdomen is unremarkable. Nondisplaced fracture of the lateral sixth and seventh right ribs. No other discrete rib fractures or acute bony abnormality. Leftward convexity to the spine. IMPRESSION: 1. Nondisplaced fracture of the lateral right sixth and seventh ribs. Mild blunting the right costoph renic angle which could be due to small effusion. No pneumothorax or consolidation. RIBS RIGHT INDICATION: Right-sided pain after fall. COMPARISON: None available FINDINGS: 2 views right third. There is a nondisplaced fracture the right lateral sixth and seventh ribs. No other discrete fractures. No bony lesions. Mild degenerative change seen in the shoulders. IMPRESSION: Nondisplaced fracture of the right lateral sixth and seventh ribs. Report Dictated By: Cain Reza at 09/27/2018 4:20 PM Report E-Signed By: Cain Reza at 09/27/2018 4:25 PM WSN:[id number]
--- NOTE | 2018-09-27 16:33 | RADIOLOGY IMAGING REPORT ---
FACILITY: [facility] PATIENT NAME: Genie Del Rosario : 1930 MR: [id number] V: [id number] EXAM DATE: ORDERING PHYSICIAN: BIENVENIDO PARK TECHNOLOGIST: Location: [facility] - [place] Patient: Genie Del Rosario : 1930 Visit/Account:[id number] Date of Sevice: 09/27/2018 2 VIEWS CHEST INDICATION: Right-sided pain after fall. COMPARISON: 04/07/2015. FINDINGS: Cardiac silhouette is again mildly enlarged. Mediastinal silhouette and pulmonary vessels within norm al limits. Left subclavian 2-lead pacemaker is in place. There is no focal infiltrate or lobar consolidation. There is mild blunting of the right costophrenic angle. Left costophrenic angles well visualized. No pneumothorax or discrete nodule. Upper abdomen is unremarkable. Nondisplaced fracture of the lateral sixth and seventh right ribs. No other discrete rib fractures or acute bony abnormality. Leftward convexity to the spine. IMPRESSION: 1. Nondisplaced fracture of the lateral right sixth and seventh ribs. Mild blunting the right costoph renic angle which could be due to small effusion. No pneumothorax or consolidation. RIBS RIGHT INDICATION: Right-sided pain after fall. COMPARISON: None available FINDINGS: 2 views right third. There is a nondisplaced fracture the right lateral sixth and seventh ribs. No other discrete fractures. No bony lesions. Mild degenerative change seen in the shoulders. IMPRESSION: Nondisplaced fracture of the right lateral sixth and seventh ribs. Report Dictated By: Cain Reza at 09/27/2018 4:20 PM Report E-Signed By: Cain Reza at 09/27/2018 4:25 PM WSN:[id number]
[2018-09-27] MEDS ORDERED: ACETAMINOPHEN 325 MG TAB PO ONE (16:45)
[2018-09-28] MEDS ORDERED: POTA20TA85 PO (13:17)
[2018-10-04] MEDS ORDERED: LIDO76.5 (09:29)
== END 2018-09-27 17:45 | disposition home or self-care (01) ==
LOC: ER 13:36
DX: S22.41XA Multiple fractures of ribs, right side, initial encounter for closed fracture (principal); K59.01 Slow transit constipation
CPT/HCPCS: 71046; 71100; 74022; 99284; A9270

== ENCOUNTER → 2018-09-27 | Outpatient (CLI) | payer MEDICARE, MEDICAID ==
[~2018-09-27] MED LIST changes: +LIDO700A19 TD; +LIDO76.5
== END ==
LOC: AMB 17:01
PROVIDERS: ATTEND Nurse Practitioner
DX: S22.49XA Multiple fractures of ribs, unspecified side, initial encounter for closed fracture (principal)
CPT/HCPCS: A0425; A0428

== ENCOUNTER → 2018-09-27 | Outpatient (CLI) | payer MEDICARE, MEDICAID | LOC: AMB 12:48 | PROVIDERS: ATTEND Nurse Practitioner | DX: K59.00 Constipation, unspecified (principal); R09.02 Hypoxemia | CPT/HCPCS: A0425; A0429 ==